=== PATIENT | female | born 1960 | race Caucasian/White ===

== ENCOUNTER 2021-11-12 15:45 | Emergency (ER) | payer OTHER, SELFPAY ==
[2021-11-12 16:14] VITALS: BP 175/86; PULSE 67; RESP 18; TEMP 36.2; O2SAT 97; BMI 31.0
[2021-11-12 20:59] VITALS: BP 166/89; PULSE 57; RESP 18; O2SAT 96
--- NOTE | 2021-11-12 21:07 | ED.EYEPROB ---
HPI - Eye Problem General Chief complaint: Eye Problems Stated complaint: vision problems, shadows, spots, blurry Time Seen by Provider: 11/12/21 21:07 Source: patient Mode of arrival: ambulatory History of Present Illness HPI Narrative: 60-year-old female who presents with waking this morning with which she thought was a spider and then realized that when she moved her eye that the Shadow area moved with that. Throughout the day she has noticed floaters but denies any complete visual loss but does endorse that she had some blurry vision while she was waiting in the waiting area. She denies any history of diabetes or irregular heartbeat. She also denies any trauma. Related Data Allergies Allergy/AdvReac Type Severity Reaction Status Date / Time latex [LATEX] Allergy Unknown SENSATIVITY Unverified 08/16/20 15:14 lisinopril [LISINOPRIL] Allergy Unknown FACIAL Unverified 08/16/20 15:14 SWELLING Sulfa (Sulfonamide Allergy Unknown HIVES Unverified 08/16/20 15:14 Antibiotics) [SULFA(SULFONAMIDE ANTIBIOTICS)] Review of Systems Review of Systems: Pertinent positives and negatives as stated in H PI and 10 point review of systems is otherwise negative. [facility] Past Medical History Source: nursing notes reviewed Social History Social History Advance Directives: No Advance Directives Information Provided: Yes Physical Exam Vital Signs: Vital Signs: Last Vital Signs Temp 97.2 F 11/12/21 16:14 Pulse 57 11/12/21 20:59 Resp 18 11/12/21 20:59 BP 166/89 H 11/12/21 20:59 Pulse Ox 96 11/12/21 20:59 BMI result Body Mass Index 31.0 VITAL SIGNS: Reviewed. GENERAL: Well developed, well nourished, in no acute distress. HEAD: Normocephalic/atraumatic EYES: PERRLA, EOMI, OD: 20/40, OS: 20/25, consensual pupillary intact LUNGS: Normal breath sounds. SpO2<96> CARDIOVASCULAR: Regular rate and rhythm without noted murmurs ABDOMEN: Soft, non-tender, non-distended with bowel sounds. NEUROLOGIC: Alert and oriented x 4. Strength and sensation to light touch were grossly intact x 4. Course Course Course Narrative: 60-year-old female with history and clinical presentation mildly suggestive of vitreal detachment and on bedside ultrasound patient evaluated for retinal detachment which was negative. This case was discussed with ophthalmology who states that patient can call his office in the morning for further evaluation. I discussed findings as well as the plan with the patient who is agreeable. MDM - Eye Problem Lab Data Labs: Lab Results 11/12/21 Range/Units 21:27 POC Glucose 86 (60-115) mg/dL Discharge Plan Discharge Clinical Impression: Subjective visual disturbance of right eye Patient Disposition: Home, Self-Care Instructions: Blurred Vision (ED) Additional Instructions: 1. You may resume all prescribed home medications. 2. You have been provided with an ophthalmology referral below. Please call the office in the morning. Please return to the ER for acute worsening of symptoms. Referrals: Nhan Pulido [Physician] - 2 days (Right eye shadow, no evidence of retinal detachment, but ?vitreous)
[2021-11-12 21:30] LABS: Glucose, Whole Blood 86 mg/dL (60-115)
[2021-11-12 23:14] VITALS: BP 157/81; PULSE 58; RESP 16; O2SAT 157
== END 2021-11-12 23:28 | disposition home or self-care (01) ==
PROVIDERS: Emergency Provider Student in an Organized Health Care Education/Training Program
DX: H53.10 Unspecified subjective visual disturbances (principal)
CPT/HCPCS: 82947; 99283; 99284